=== PATIENT | female | born 1930 | race Caucasian/White ===

== ENCOUNTER 2018-11-30 15:20 | Inpatient (IN) | payer OTHER, MEDICAID ==
[~2018-11-30] VITALS: Ht 160 cm; Wt 61.7 kg
[~2018-11-30 15:20] MED LIST: AMLO10TA PO; ASPI-1677 PO; FURO-572 PO; LISI-420 PO; LORA0.5T6 PO; OMEP20TC12 PO; QUET25TA PO
[2018-11-30 15:26] VITALS: BP 125/55
--- NOTE | 2018-11-30 15:34 | NUR ---
PT RUCHI ALS TO ER BED 12
--- NOTE | 2018-11-30 15:35 | NUR ---
CHEST PAIN STARTING THIS AM, NON-PROVOKED. PT NOW DESCRIBING NON-RADIATING PAIN PRESSURE, PT AWAKE AND ALERT, NO SOB, NON DIAPHORETIC. GAVE ASPIRIN 324 IN FIELD. PATIENT ON 3 L NC UPON ARRIVAL. VSS. BED IS DOWN, LOCKED, BED RAIL X 1, ERMD TO SEE PT. PMH-HTN, ALZHEIMERS, CKD STAGE 3 AND HHD, HEART FAILURE, HYPERLIPIDEMIA
[2018-11-30] MEDS ORDERED: DOCU-299 PO (15:56)
[2018-11-30] MEDS ORDERED: ASCO500T45 PO (15:56)
[2018-11-30] MEDS ORDERED: [UNRECOGNIZED DRUG - OTHER] PO (15:56)
[2018-11-30] MEDS ORDERED: CRANBERRY PO (15:56)
--- NOTE | 2018-11-30 16:21 | NUR ---
PT TAKEN OFF NC, NOW ON RA
--- NOTE | 2018-11-30 16:48 | NUR ---
XRAY AT BEDSIDE
[2018-11-30 17:12] LABS: HEMATOCRIT 31.6 % (36-48); HEMOGLOBIN 10.6 g/dL (12.0-16.0); MEAN CORPUSCULAR HEMOGLOBIN 33 pg (27-31); MEAN CORPUSCULAR HGB CONC 34 g/dL (33-37); MEAN CORPUSCULAR VOLUME 99.5 fL (80-94); PLATELET COUNT (AUTO) 110 K/uL (140-450); RED BLOOD CELL COUNT(AUTO) 3.18 MIL/uL (4.20-5.40); RED CELL DISTRIBUTION WIDTH 16.3 % (11.6-13.7); WHITE BLOOD COUNT (AUTO) 3.7 K/uL (4.8-10.8)
--- NOTE | 2018-11-30 17:22 | NUR ---
pt placed on pacer pads, another ekg was done and shows
--- NOTE | 2018-11-30 17:24 | NUR ---
dr bonds at bedside
--- NOTE | 2018-11-30 17:24 | NUR ---
accelerated junctional rhythm
[2018-11-30] MEDS ORDERED: MORPHINE SULFATE 4 MG/ML SYR IVP ONE (17:25)
[2018-11-30] MEDS ORDERED: MORPHINE SULFATE 4 MG/ML SYR IVP STA (17:29)
--- NOTE | 2018-11-30 17:30 | NUR ---
SHANTHI EMT AT BEDSIDE FOR EKG
--- NOTE | 2018-11-30 17:35 | NUR ---
MORPHINE IVP ADMINSITERED ORDERED, PAIN 11/16
[2018-11-30 17:36] LABS: ALBUMIN 3.7 g/dL (3.4-5.0); ANION GAP 13.4 (8-16); ASPARTATE AMINOTRANSFERASE 21 U/L (15-37); CARBON DIOXIDE 26.4 mmol/L (21-32); CHLORIDE 106 mmol/L (98-107); CREATININE 1.9 mg/dL (0.6-1.3); GLUCOSE 145 mg/dL (74-106); POTASSIUM 4.8 mmol/L (3.5-5.1); SODIUM SERUM 141 mmol/L (136-145); TOTAL BILIRUBIN 0.3 mg/dL (0.0-1.0); UREA NITROGEN, BLOOD 51 mg/dL (7-18)
[2018-11-30 17:38] LABS: BASOPHILS % (MANUAL) 0 % (0-2); EOSINOPHILS % (MANUAL) 3 % (0-4); LYMPHOCYTES % (MANUAL) 39 % (20-46); MONOCYTES % (MANUAL) 14 % (5-12)
[2018-11-30] MEDS ORDERED: MORPHINE SULFATE 4 MG/ML SYR ONE (17:43)
--- NOTE | 2018-11-30 18:14 | NUR ---
# 14 FR Urinary catheter inserted utilizing sterile technique. Immediate return of 200 ml YELLOW urine noted. Urine sample collected and sent to lab. Pt tolerated procedure WELL.
[2018-11-30] MEDS ORDERED: VANCOMYCIN 1,000 MG VIAL ONE (18:29)
[2018-11-30] MEDS ORDERED: PIPERACILLIN/TAZOBACTAM 3.375 GM VIAL IV ONE (18:29)
[2018-11-30] MEDS ORDERED: MORPHINE SULFATE 2 MG/ML SYR IVP PRN (18:30)
[2018-11-30] MEDS ORDERED: ONDANSETRON 4 MG/2 ML VIAL IM/IVP PRN (18:30)
[2018-11-30] MEDS ORDERED: ACETAMINOPHEN 325 MG TAB PO PRN (18:30)
[2018-11-30] MEDS ORDERED: HYDROcodone/APAP 7.5/325 MG 1 TAB PO PRN (18:30)
--- NOTE | 2018-11-30 18:55 | NUR ---
lab at bedside for second blood culture
[2018-11-30 19:00] VITALS: BP 141/40
[2018-11-30] MEDS: PIPERACILLIN/TAZOBACTAM 3.375 GM in DEXTROSE 5% 50 ML IV ONE ×2 (19:00→19:30)
[2018-11-30] MEDS: NACL 0.9% 1,000 ML IV SCH (19:00)
[2018-11-30] MEDS: VANCOMYCIN 1,000 MG in DEXTROSE 5% 250 ML IV ONE ×2 (19:00→19:30)
--- NOTE | 2018-11-30 19:00 | NUR ---
Patient will be admitted to care of [facility]. Admited to tele. Will go to room 127b. Belongings list completed. Report to freddy zaragoza.
--- NOTE | 2018-11-30 19:00 | NUR ---
zosyn and bekaho mixed and pending start, freddy zaragoza made aware
--- NOTE | 2018-11-30 19:00 | NUR ---
RECEIVED PT FROM ED FROM JOAQUIM. PT AWAKE, W/ CONFUSION. PT USING A WALKER TO AMBULATE, W/ STANDBY ASSIST. POC REVIEWED DISCUSSED. PLACED ON LOW BED. CALL LIGHT W/IN REACH
--- NOTE | 2018-11-30 19:00 | NUR ---
RECEIVED W/ ONCOING ZOSYN AT A RATE OF 100 ML ON THE LEFT HAND G 20, INFUSING WELL . W/ VANCOMYCIN HANGING BUT NO INFUSION GOING ON. WILL CONTINUE INFUSION LATER
[2018-11-30 19:30] LABS: PROTHROMBIN TIME 11.9 secs (10.8-13.4)
--- NOTE | 2018-11-30 19:30 | NUR ---
VANCOMYCIN INFUSING AT 165 ML/ HR ON LEFT HAND G 20, INFUSING WELL
[2018-11-30 19:33] LABS: MAGNESIUM 2.2 mg/dL (1.8-2.4); PHOSPHORUS 4.2 mg/dL (2.5-4.9); THYROID STIMULATING HORMONE 1.34 uIU/mL (0.34-3.74)
[2018-11-30] MEDS ORDERED: CRAN450C PO (20:36)
[2018-11-30] MEDS ORDERED: LACT-2 (20:36)
[2018-11-30] MEDS ORDERED: FURO20TA8 PO (20:36)
[2018-11-30] MEDS ORDERED: LORazepam 0.5 MG TAB PO PRN (21:10)
--- NOTE | 2018-11-30 21:25 | NUR ---
WENT TO LUNG SCAN W/ 2 NUCLEAR MED STAFF VIA WHEELCHAIR
--- NOTE | 2018-11-30 21:52 | NUR ---
BACK FROM PULMONARY SCAN PLACED PT BACK IN BED, PLACED BACK VANCO IV INFUSING WELL ON LEFT HAND G 20,
[2018-11-30] MEDS ORDERED: KETOROLAC 15 MG/ML VIAL IVP PRN (22:05)
--- NOTE | 2018-11-30 23:15 | NUR ---
PLACED PT ON FALL RISK HAS HX OF FALLS
--- NOTE | 2018-11-30 23:45 | NUR ---
INFORMED BY [employer] PT HAS 45 HEART RATE AND FOR MONITORING. WENT TO PT'S BEDSIDE TOOK HER VITAL SIGNS. PT ASLEEP BRANDON EASILY AROUSABLE, NO S/ SX'S OF CHEST PAIN. EVEN RESPIRATION VS; 98, 107/53, 58, 95%, 0/10
[2018-12-01] VITALS: BP 107/53
[2018-12-01 00:14] LABS: APPEARANCE,URINE CLEAR (CLEAR); BILIRUBIN,URINE NEGATIVE (NEGATIVE); BLOOD, URINE NEGATIVE (NEGATIVE); COLOR,URINE YELLOW (YELLOW); LEUKOCYTE ESTERASE ,URINE NEGATIVE (NEGATIVE); NITRITE, URINE NEGATIVE (NEGATIVE); PH,URINE 5.5 (5.0-9.0); UGLUCOSE NEGATIVE (NEGATIVE)
--- NOTE | 2018-12-01 03:30 | NUR ---
INFORMED DR. KILGORE THAT PT HAS A HR = 53; DR AWARE,NO FURTHER ORDERS
[2018-12-01 04:00] VITALS: BP 117/77
[2018-12-01] MEDS: PANTOPRAZOLE 40 MG TABEC PO SCH (05:38)
--- NOTE | 2018-12-01 06:50 | NUR ---
PT, SLEEPING BUT EASILY AROUSABLE BY TACTILE AND VERBAL STIMULI. PT IN STABLE CONDITION AT THIS TIME.NO COMPLAINTS OF CHEST PAIN. WILL ENDORSE TO NEXT SHIFT
--- NOTE | 2018-12-01 07:15 | NUR ---
Received pt from night nurse. Pt in awake and in bed during bedside report. AAOx3. IV to L wrist, 20G, NS @ 100ml/hr, asymptomatic. Will continue to assess for changes in condition, no signs of acute distress at this time.
[2018-12-01 07:33] LABS: BASOPHILS % (AUTO) 0.1 % (0.0-2.0); EOSINOPHILS # (AUTO) 0.2 K/uL (0-0.4); EOSINOPHILS % (AUTO) 4.5 % (0.0-4.0); HEMATOCRIT 29.8 % (36-48); LYMPHOCYTES # (AUTO) 1.4 K/uL (2.5-16.5); LYMPHOCYTES % (AUTO) 31.4 % (20.5-51.1); MEAN CORPUSCULAR HEMOGLOBIN 34 pg (27-31); MEAN CORPUSCULAR HGB CONC 34 g/dL (33-37); MEAN CORPUSCULAR VOLUME 99.7 fL (80-94); MONOCYTES # (AUTO) 0.9 K/uL (0.8-1.0); MONOCYTES % (AUTO) 19.6 % (1.7-9.3); NEUTROPHILS % (AUTO) 44.4 % (42.2-75.2); PLATELET COUNT (AUTO) 99 K/uL (140-450); RED BLOOD CELL COUNT(AUTO) 2.99 MIL/uL (4.20-5.40); RED CELL DISTRIBUTION WIDTH 16.3 % (11.6-13.7); WHITE BLOOD COUNT (AUTO) 4.5 K/uL (4.8-10.8)
[2018-12-01 07:51] LABS: ANION GAP 13.9 (8-16); CARBON DIOXIDE 24.3 mmol/L (21-32); CHLORIDE 109 mmol/L (98-107); CREATININE 1.8 mg/dL (0.6-1.3); GLUCOSE 96 mg/dL (74-106); POTASSIUM 5.2 mmol/L (3.5-5.1); SODIUM SERUM 142 mmol/L (136-145); UREA NITROGEN, BLOOD 48 mg/dL (7-18)
[2018-12-01 07:55] LABS: MAGNESIUM 2.1 mg/dL (1.8-2.4); PHOSPHORUS 3.5 mg/dL (2.5-4.9)
[2018-12-01 07:58] VITALS: BP 123/57
[2018-12-01 08:19] LABS: CHOL/HDL RATIO 3.8 (1-4.5)
[2018-12-01] MEDS ORDERED: LISINOPRIL 20 MG TAB PO SCH (08:30)
--- NOTE | 2018-12-01 09:17 | NUR ---
DR. FUENTES NOTIFIED THAT PLATELETS 99, DOWN FRO 110 ON 11/30/18. DR FUENTES ADVISED THAT ORDERED SUB-Q HEPARIN OK TO ADMINISTER.
[2018-12-01] MEDS: DOCUSATE SODIUM 100 MG GELCAP PO SCH ×2 (09:20→20:59)
[2018-12-01] MEDS: QUEtiapine FUMARATE 25 MG TAB PO SCH ×2 (09:21→20:59)
[2018-12-01] MEDS: FUROSEMIDE 20 MG TAB PO SCH (09:21)
[2018-12-01] MEDS: amLODIPine 5 MG TAB PO SCH (09:21)
[2018-12-01] MEDS: ASCORBIC ACID 500 MG TAB PO SCH ×2 (09:21→20:59)
[2018-12-01] MEDS: ASPIRIN 81 MG TAB.CHEW PO SCH (09:22)
[2018-12-01] MEDS: NACL 0.9% 1,000 ML IV SCH (09:27)
[2018-12-01 12:00] VITALS: BP 109/39
--- NOTE | 2018-12-01 12:00 | NUR ---
PT IN BED. NO SIGNS OF ACUTE DISTRESS AT THIS TIME. WILL CONTINUE TO ASSESS FOR CHANGES IN CONDITION.
[2018-12-01] MEDS ORDERED: PATIROMER CALCIUM SORBITEX 8.4 GM PKT PO SCH (12:12)
--- NOTE | 2018-12-01 14:00 | NUR ---
PT IN BED, DENIES PAIN. LUNCH TRAY REMOVED FROM ROOM, PT STATED SHE WAS DONE EATING. PT SHOWS NO SIGNS OF ACUTE DISTRESS AT THIS TIME. WILL CONTINUE TO ASSESS FOR CHANGES IN CONDITION.
[2018-12-01 16:00] VITALS: BP 122/44
--- NOTE | 2018-12-01 16:00 | NUR ---
PT IN BED SLEEPING. PT WOKE BY VOICE. 1600 VITALS OBTAINED AND TRENDING WITH PREVIOUS. NO SIGNS OF ACUTE DISTRESS AT THIS TIME. WILL CONTINUE TO ASSESS PT FOR CHANGES IN CONDITION.
--- NOTE | 2018-12-01 19:00 | NUR ---
PT ENDORSED TO HOSTESS PARTY SALES REPRESENTATIVE. PT IN BED, NO SIGNS OF ACUTE DISTRESS AT THIS TIME. PT ALERT AND ORIENTED DURING BEDSIDE SBAR. IV SITE ASYMPTOMATIC INFUSING NS AT 60ML/HR. PT DISPLAYS NO SIGNS OF ACUTE DISTRESS AT THIS TIME.
--- NOTE | 2018-12-01 19:01 | NUR ---
RECEIVED BEDSIDE REPORT PT FROM PM SHIFT NURSE. PT AWAKE, ALERT O X 3, W/ FORGETFULNESS. W/ IV ON THE L WRIST 20 G NS AT 100 ML/HR, ASYMPTOMATIC. PLACED PT IN LOW BED. FALL RISK PRECAUTION IN PLACE.
[2018-12-01 19:29] LABS: ANION GAP 15.6 (8-16); CARBON DIOXIDE 22.2 mmol/L (21-32); CHLORIDE 107 mmol/L (98-107); CREATININE 1.8 mg/dL (0.6-1.3); GLUCOSE 104 mg/dL (74-106); POTASSIUM 4.8 mmol/L (3.5-5.1); SODIUM SERUM 140 mmol/L (136-145); UREA NITROGEN, BLOOD 45 mg/dL (7-18)
--- NOTE | 2018-12-01 19:45 | NUR ---
BRUCE VITALS OF PT, REPORTED TO DR. KILGORE VS BP LOW AT 90/31 (map 59); HR 55, BRADYCARDIC, RR=18, 97.2 O2 SAT 94%. TO RETAKE BP AFTER 30 MINS.
[2018-12-01 20:00] VITALS: BP 90/31
--- NOTE | 2018-12-01 20:15 | NUR ---
RETOOK BLOOD PRESSURE PT BP IS 112/ 52; HR 58.NO NEW ORDERS
--- NOTE | 2018-12-01 20:40 | NUR ---
99 PLT LOW, CONTINUE GIVING THE HEPARIN SQ PER DR'S ORDER. DR. KILGORE
[2018-12-02] VITALS: BP 114/34
--- NOTE | 2018-12-02 00:15 | NUR ---
VS CHECKED AND CHARTED. ASSISTED PT TO RESTROOM. PT TOLERATED ACTIVITY WELL. WILL CONTINUE TO MONITOR PT.
--- NOTE | 2018-12-02 00:28 | NUR ---
IV LINE DISLODGED, TRIED TO POKE PT, ON THE LEFT ARM, PT SHIED AWAY HAND. SHE SAID "IT HURTS, GRIMACING IN PAIN. INFORMED DR. KILGORE AND TO LEAVE IT FOR THE NIGHT AND TRY AGAIN TMRW(IF DISCHARGE WILL NOT PUSH THROUGH)
[2018-12-02] MEDS: NACL 0.9% 1,000 ML IV SCH ×2 (01:47→18:27)
--- NOTE | 2018-12-02 02:19 | NUR ---
PT HAS NO IV LINE. DR. KILGORE AWARE
[2018-12-02 04:00] VITALS: BP 135/49
--- NOTE | 2018-12-02 04:00 | NUR ---
PT WENT TO THE BATHROOM W/ 1 PERSON ASSIST. PT VOIDED 2X
[2018-12-02] MEDS: PANTOPRAZOLE 40 MG TABEC PO SCH (05:37)
[2018-12-02 06:33] LABS: MAGNESIUM 1.8 mg/dL (1.8-2.4); PHOSPHORUS 3.4 mg/dL (2.5-4.9)
[2018-12-02 06:34] LABS: ANION GAP 13.7 (8-16); CARBON DIOXIDE 22.9 mmol/L (21-32); CHLORIDE 108 mmol/L (98-107); CREATININE 1.6 mg/dL (0.6-1.3); GLUCOSE 100 mg/dL (74-106); POTASSIUM 4.6 mmol/L (3.5-5.1); SODIUM SERUM 140 mmol/L (136-145); UREA NITROGEN, BLOOD 42 mg/dL (7-18)
--- NOTE | 2018-12-02 06:38 | NUR ---
PT, SLEEPING BUT EASILY AROUSABLE BY TACTILE AND VERBAL STIMULI. PT IN STABLE CONDITION AT THIS TIME.NO COMPLAINTS OF CHEST PAIN. WILL ENDORSE TO NEXT SHIFT
--- NOTE | 2018-12-02 07:20 | NUR ---
RECEIVED PT FROM FURNACE ERECTOR NURSE, PT IS AWAKE AND LYING ON THE BED, SIDE RAILS ARE UP AND CALL LIGHT WITHIN REACH, SAFETY AND FALL PRECAUTION INITIATED, BED ALARM ACTIVATED, PT HAS NO IV LINE, SAID NOT TO REINSERT ANOTHER IV LINE PER ENDORSEMENT, PT DENIES PAIN AND NO SIGN OF DISTRESS NOTED AND WILL MONITOR PT.
[2018-12-02 08:05] VITALS: BP 134/40
--- NOTE | 2018-12-02 08:11 | NUR ---
PATIENT HAS BEEN SCREENED AND CATEGORIZED MODERATE NUTRITION RISK. PATIENT WILL BE SEEN WITHIN 3-5 DAYS OF ADMISSION. 12/03/18FR[address]
[2018-12-02] MEDS: DOCUSATE SODIUM 100 MG GELCAP PO SCH ×2 (08:45→21:15)
[2018-12-02] MEDS: ASCORBIC ACID 500 MG TAB PO SCH ×2 (08:46→21:15)
--- NOTE | 2018-12-02 08:46 | NUR ---
PT IS AWAKE AND ORAL MEDICATIONS WERE GIVEN AND PT TOLERATED IT. NO SIGN OF DISTRESS NOTED AND WILL MONITOR PT.
[2018-12-02] MEDS: amLODIPine 5 MG TAB PO SCH (08:47)
[2018-12-02] MEDS: FUROSEMIDE 20 MG TAB PO SCH (08:48)
[2018-12-02] MEDS: QUEtiapine FUMARATE 25 MG TAB PO SCH ×2 (08:48→21:15)
[2018-12-02] MEDS: ASPIRIN 81 MG TAB.CHEW PO SCH (08:48)
[2018-12-02 09:04] LABS: BASOPHILS % (AUTO) 0.7 % (0.0-2.0); EOSINOPHILS # (AUTO) 0.2 K/uL (0-0.4); HEMATOCRIT 28.7 % (36-48); HEMOGLOBIN 9.6 g/dL (12.0-16.0); LYMPHOCYTES # (AUTO) 1.5 K/uL (2.5-16.5); LYMPHOCYTES % (AUTO) 44.8 % (20.5-51.1); MEAN CORPUSCULAR HEMOGLOBIN 33 pg (27-31); MEAN CORPUSCULAR HGB CONC 33 g/dL (33-37); MEAN CORPUSCULAR VOLUME 99.1 fL (80-94); MONOCYTES # (AUTO) 0.6 K/uL (0.8-1.0); MONOCYTES % (AUTO) 16.1 % (1.7-9.3); NEUTROPHILS # (AUTO) 1.1 K/uL (1.8-7.7); NEUTROPHILS % (AUTO) 32.4 % (42.2-75.2); PLATELET COUNT (AUTO) 95 K/uL (140-450); RED CELL DISTRIBUTION WIDTH 16.4 % (11.6-13.7); WHITE BLOOD COUNT (AUTO) 3.5 K/uL (4.8-10.8)
--- NOTE | 2018-12-02 10:18 | NUR ---
PTS HEPARIN WAS NOT GIVEN DUE TO LOW PLT COUNT
--- NOTE | 2018-12-02 10:44 | NUR ---
REFERRALS FAXED TO [facility].
--- NOTE | 2018-12-02 10:45 | NUR ---
PHYSICAL THERAPIST DOING EVALUATION WITH THE PT, PT WAS SEEN AMBULATING IN THE HALLWAY ASSISTED WITH PT, GAIT STEADY WITH ASSIST
[2018-12-02 12:00] VITALS: BP 138/51
--- NOTE | 2018-12-02 13:27 | NUR ---
PER ARIELLE OF [facility] [place], PATIENT WILL GO TO THE SAME ROOM 45A UNDER DR. SMALLS FOR TOMORROW.
--- NOTE | 2018-12-02 15:00 | NUR ---
A NEW IV LINE WAS STARTED TO PT ON THE RT FA G. 22.
[2018-12-02 16:00] VITALS: BP 134/54
--- NOTE | 2018-12-02 19:22 | NUR ---
ENDORSED PT TO NIGHT AHIFT NURSEBRE WITH CONTINUED CARE
--- NOTE | 2018-12-02 19:25 | NUR ---
RECEIVED BEDSIDE REPORT FROM AM SHIFT SHAKIRA KHAN, FOR PT'S CONTINUITY OF CARE. PT IS LYING DOWN, AWAKE, WATCHING TV, IS ON ROOM AIR, HAS A RIGHT FA 22G INFUSING WITH NORMAL SALINE AT 60ML/HR, PT DENIES ANY PAIN OR DISCOMFORT AT THIS TIME, FALL PRECAUTION AND PREVENTION IN PLACE. EXPLAINED TO PT HEAD OF RESEARCH & INSIGHTS ROUTINE, AND PT VERBALIZED UNDERSTANDING. BED IS ON LOW POSITION, SIDE RAILS ARE UP, AND CALL LIGHT IS WITHIN REACH. WILL MONITOR PT THROUGHOUT SHIFT.
--- NOTE | 2018-12-02 20:40 | NUR ---
ADMINISTERED SCHEDULED PO MEDICATIONS ORDERED. PT TOLERATED THEM WELL. HEPARIN HELD PER MD, PLT 95, APTT 24.9. WILL CONTINUE TO MONITOR PT.
[2018-12-03] VITALS: BP 148/52
--- NOTE | 2018-12-03 02:30 | NUR ---
MADE ROUNDS. PT LYING DOWN ASLEEP, WITH NO SIGNS OF DISTRESS. WILL CONTINUE TO MONITOR PT.
--- NOTE | 2018-12-03 04:45 | NUR ---
MADE ROUNDS. PATIENT LYING DOWN ASLEEP WITH NO SIGNS OF DISTRESS. WILL CONTINUE TO MONITOR PT.
[2018-12-03] MEDS: PANTOPRAZOLE 40 MG TABEC PO SCH (05:57)
--- NOTE | 2018-12-03 05:58 | NUR ---
ASSISTED PT TO RESTROOM, PT TOLERATED ACTIVITY WELL. ADMINISTERED SCHEDULED PO MEDICATION ORDERED. PT TOLERATED IT WELL. PT NOW LYING DOWN, AWAKE, WITH NO COMPLAINS OF PAIN OR DISCOMFORT. WILL ENDORSE TO AM SHIFT RN FOR PT'S CONTINUITY OF CARE.
[2018-12-03 06:28] LABS: ANION GAP 11.4 (8-16); CARBON DIOXIDE 26.1 mmol/L (21-32); CHLORIDE 108 mmol/L (98-107); CREATININE 1.3 mg/dL (0.6-1.3); GLUCOSE 101 mg/dL (74-106); POTASSIUM 4.5 mmol/L (3.5-5.1); SODIUM SERUM 141 mmol/L (136-145); UREA NITROGEN, BLOOD 35 mg/dL (7-18)
[2018-12-03 06:36] LABS: MAGNESIUM 1.6 mg/dL (1.8-2.4); PHOSPHORUS 3.4 mg/dL (2.5-4.9)
--- NOTE | 2018-12-03 07:05 | NUR ---
RECEIVED PATIENT FROM BEARINGIZER NURSEBRE, AWAKE, LAYING ON THE BED RAILS UP AND PADDED, BED ALARM ACTIVATED, BED LIGHT WITHIN REACH, SAFETY PRECAUTIONS INITIATED, IV LINE ON R. FA 22G NS AT 60ML/HR. PATIENT VERBALIZED PAIN ON THE LEFT EAR, CHECKED AND ASSESSED, NO INFLAMMATION OR REDNESS NOTED, WILL INFORM MD, NO SIGNS OF DISTRESS NOTED, WILL CONTINUE TO MONITOR.
[2018-12-03 07:27] LABS: BASOPHILS % (AUTO) 0.4 % (0.0-2.0); EOSINOPHILS # (AUTO) 0.2 K/uL (0-0.4); EOSINOPHILS % (AUTO) 5.8 % (0.0-4.0); HEMATOCRIT 30.6 % (36-48); HEMOGLOBIN 10.5 g/dL (12.0-16.0); LYMPHOCYTES # (AUTO) 1.1 K/uL (2.5-16.5); LYMPHOCYTES % (AUTO) 35.6 % (20.5-51.1); MEAN CORPUSCULAR HEMOGLOBIN 34 pg (27-31); MEAN CORPUSCULAR HGB CONC 34 g/dL (33-37); MEAN CORPUSCULAR VOLUME 99.2 fL (80-94); MONOCYTES # (AUTO) 0.6 K/uL (0.8-1.0); MONOCYTES % (AUTO) 19.3 % (1.7-9.3); NEUTROPHILS # (AUTO) 1.2 K/uL (1.8-7.7); NEUTROPHILS % (AUTO) 38.9 % (42.2-75.2); PLATELET COUNT (AUTO) 102 K/uL (140-450); RED BLOOD CELL COUNT(AUTO) 3.09 MIL/uL (4.20-5.40); WHITE BLOOD COUNT (AUTO) 3.1 K/uL (4.8-10.8)
[2018-12-03 08:00] VITALS: BP 136/60
[2018-12-03] MEDS: amLODIPine 5 MG TAB PO SCH (08:18)
[2018-12-03] MEDS: QUEtiapine FUMARATE 25 MG TAB PO SCH ×2 (08:18→21:24)
[2018-12-03] MEDS: ASCORBIC ACID 500 MG TAB PO SCH ×2 (08:19→21:24)
[2018-12-03] MEDS: FUROSEMIDE 20 MG TAB PO SCH (08:19)
[2018-12-03] MEDS: DOCUSATE SODIUM 100 MG GELCAP PO SCH ×2 (08:20→21:24)
[2018-12-03] MEDS: ASPIRIN 81 MG TAB.CHEW PO SCH (08:20)
[2018-12-03] MEDS: NACL 0.9% 1,000 ML IV SCH (08:23)
--- NOTE | 2018-12-03 08:23 | NUR ---
PT IS AWAKE AND EATING HER BREAKFAST, ORAL AND SUBQ MEDICATIONS WERE GIVEN, SAID TO GIVEN HEPARIN FOR THE PLATELET OF 102. PT TOLERATED THE MEDICINES AND WILL MONITOR PT.
[2018-12-03] MEDS ORDERED: MAGNESIUM OXIDE 400 MG TAB PO SCH (09:09)
--- NOTE | 2018-12-03 09:54 | NUR ---
PT WAS GIVEN MAGNESIUM OXIDE ORAL FOR THE MG LEVEL OF 1.6, WILL MONITOR PT.
[2018-12-03] MEDS ORDERED: CARBAMIDE PEROXIDE 6.5% OT 15 ML BTL OT SCH ×2 (10:42→21:00)
--- NOTE | 2018-12-03 10:50 | NUR ---
ARIELLE OF [facility] AT [phone] MADE AWARE OF DC PLAN FOR TOMORROW.
--- NOTE | 2018-12-03 14:00 | NUR ---
PT IS AWAKE AND WATCHING TV, DENIES PAIN AND NO SIGN OF DISTRESS NOTED. WILL MONITOR TP.
[2018-12-03 16:00] VITALS: BP 109/37
--- NOTE | 2018-12-03 16:00 | NUR ---
PT IS AWAKE AND LYING ON THE BED VITAL SIGNS TAKEN AND IS STABLE, DENIES PAIN AND NO SIGN OF DISTRESS NOTED. WILL MONITOR PT.
--- NOTE | 2018-12-03 19:05 | NUR ---
ENDORSED PATIENT TO COOK HELPER DESSERT NURSEANH FOR CONTINUING OF CARE
--- NOTE | 2018-12-03 19:10 | NUR ---
RECEIVED PT IN STABLE CONDITION FROM AM NURSE FOR CONTINUITY OF CARE. MED SURG PT. WITH NO C/O ANY DISCOMFORT NOR PAIN NOTED. HAS IVF INFUSING WELL ON THE RT FAg#22. CLEAR AND PATENT. PLAN OF CARE DISCUSSED AND VERBALIZED UNDERSTANDING. BED ON LOW POSITION. ALARM ON. FREQ CHECK NEEDED. CALL LIGHT PLACED WITHIN EASY REACH. ON CONTACT ISOLATION FRO + MRSA NARES. WILL ASK FOR ORDERS TO MD. WILL CONTINUE TO MONITOR.
[2018-12-03 20:00] VITALS: BP 127/49
[2018-12-03] MEDS: CHLORHEXADINE GLUC 2% CLOTH TP SCH ×2 (20:25→23:16)
[2018-12-03] MEDS: CARBAMIDE PEROXIDE 6.5% OT 15 ML BTL OT SCH (21:28)
--- NOTE | 2018-12-03 21:28 | NUR ---
ALL MEDS DUE FOR THE NIGHT TAKEN BY PT.
--- NOTE | 2018-12-03 21:30 | NUR ---
CALLED PHARMACY TO FOLLOW UP REGARDING PENDING BACTROBAN ORDER. NEED CHANGE IN APPLICATION WHAT PHARMACY SAID. DR. BALLARD MADE AWARE.
--- NOTE | 2018-12-03 22:00 | NUR ---
BACTROBAN TREATMENT NOT STARTED .NEED TO GIVE WITH CHLORHEXIDINE BATH TOGETHER.
--- NOTE | 2018-12-03 23:00 | NUR ---
MADE ROUNDS. ASLEEP. NO S/S OF ANY DISCOMFORT NOTED.
[2018-12-04] MEDS: NACL 0.9% 1,000 ML IV SCH ×2 (00:15→20:27)
--- NOTE | 2018-12-04 00:15 | NUR ---
ASSISTED TO BATHROOM. AMBULATED WELL WITH STANDBY ASSISTANCE. VOIDED.
[2018-12-04 00:45] VITALS: BP 144/59
--- NOTE | 2018-12-04 00:45 | NUR ---
PT AFEBRILE. NO C/O ANY PAIN NOR DISCOMFORT NOTED. WILL CONTINUE TO MONITOR.
--- NOTE | 2018-12-04 02:00 | NUR ---
MADE ROUNDS. PT IS ASLEEP. NO S/S OF ANY DISCOMFORT NOTED.
--- NOTE | 2018-12-04 04:30 | NUR ---
MADE ROUNDS. PT IS ASLEEP. NO S/S OF ANY DISCOMFORT NOR DISTRESS NOTED.
[2018-12-04] MEDS: PANTOPRAZOLE 40 MG TABEC PO SCH (06:27)
[2018-12-04 06:44] LABS: BASOPHILS % (AUTO) 0.3 % (0.0-2.0); EOSINOPHILS # (AUTO) 0.2 K/uL (0-0.4); EOSINOPHILS % (AUTO) 5.6 % (0.0-4.0); HEMATOCRIT 27.8 % (36-48); HEMOGLOBIN 9.3 g/dL (12.0-16.0); LYMPHOCYTES # (AUTO) 1.3 K/uL (2.5-16.5); LYMPHOCYTES % (AUTO) 38.3 % (20.5-51.1); MEAN CORPUSCULAR HEMOGLOBIN 33 pg (27-31); MEAN CORPUSCULAR HGB CONC 33 g/dL (33-37); MONOCYTES # (AUTO) 0.6 K/uL (0.8-1.0); MONOCYTES % (AUTO) 17.3 % (1.7-9.3); NEUTROPHILS # (AUTO) 1.3 K/uL (1.8-7.7); NEUTROPHILS % (AUTO) 38.5 % (42.2-75.2); PLATELET COUNT (AUTO) 102 K/uL (140-450); RED BLOOD CELL COUNT(AUTO) 2.81 MIL/uL (4.20-5.40); RED CELL DISTRIBUTION WIDTH 15.9 % (11.6-13.7); WHITE BLOOD COUNT (AUTO) 3.4 K/uL (4.8-10.8)
[2018-12-04 06:51] LABS: ANION GAP 12.7 (8-16); CARBON DIOXIDE 23.6 mmol/L (21-32); CHLORIDE 109 mmol/L (98-107); CREATININE 1.2 mg/dL (0.6-1.3); GLUCOSE 97 mg/dL (74-106); POTASSIUM 4.3 mmol/L (3.5-5.1); SODIUM SERUM 141 mmol/L (136-145); UREA NITROGEN, BLOOD 35 mg/dL (7-18)
[2018-12-04 06:55] LABS: MAGNESIUM 1.7 mg/dL (1.8-2.4); PHOSPHORUS 3.3 mg/dL (2.5-4.9)
--- NOTE | 2018-12-04 07:20 | NUR ---
ENDORSED PT IN STABLE CONDITION TO AM NURSE FOR CONTINUITY OF CARE.
--- NOTE | 2018-12-04 07:22 | NUR ---
RECEIVED REPORT FROM NIGHT RN. PT RESTING IN BED. AAOX4. NO S/S OF ACUTE DISTRESS. PT DENIES PAIN. IV SITE PATENT AND INTACT. CALL LIGHT WITHIN REACH. SAFETY MEASURES ENSURED. WILL CONTINUE TO MONITOR.
[2018-12-04 08:00] VITALS: BP 146/59
[2018-12-04] MEDS: ASCORBIC ACID 500 MG TAB PO SCH ×2 (09:52→20:53)
[2018-12-04] MEDS: ASPIRIN 81 MG TAB.CHEW PO SCH (09:53)
[2018-12-04] MEDS: DOCUSATE SODIUM 100 MG GELCAP PO SCH ×2 (09:53→20:53)
[2018-12-04] MEDS: QUEtiapine FUMARATE 25 MG TAB PO SCH ×2 (09:54→20:53)
[2018-12-04] MEDS: FUROSEMIDE 20 MG TAB PO SCH (09:54)
[2018-12-04] MEDS: amLODIPine 5 MG TAB PO SCH (09:56)
[2018-12-04] MEDS: CARBAMIDE PEROXIDE 6.5% OT 15 ML BTL OT SCH ×2 (09:57→21:52)
--- NOTE | 2018-12-04 10:07 | NUR ---
CONTACTED [facility] [place] AT [phone], ABLE TO SPEAK TO ROSA MADE HER AWARE THAT THE DC PLAN IS FOR TOMORROW.
[2018-12-04] MEDS ORDERED: MAGNESIUM OXIDE 400 MG TAB PO SCH (12:30)
--- NOTE | 2018-12-04 12:31 | NUR ---
PATIENT RESTING IN BED. NO S/S OF ACUTE DISTRESS. PT DENIES PAIN. CALL LIGHT WITHIN REACH. SAFETY MEASURES ENSURED.
--- NOTE | 2018-12-04 14:41 | NUR ---
12/04/18 RD INITIAL ASSESSMENT COMPLETED PLEASE REFER TO NUTRITION ASSESSMENT UNDER CARE ACTIVITY FOR ESTIMATED NUTRITIONAL NEEDS. 1. CONTINUE CARDIAC MECHANICAL SOFT DIET TOLERATED 2. RECOMMEND ENSURE BID 3. RD TO FOLLOW-UP 3-5 DAYS, MODERATE RISK FRANK WOODALL RD
[2018-12-04 16:00] VITALS: BP 111/35
--- NOTE | 2018-12-04 16:32 | NUR ---
PT RESTING IN BED. NO S/S OF ACUTE DISTRESS.PT DENIES PAIN. IV SITE PATENT AND INTACT. CALL LIGHT WITHIN REACH. SAFETY MEASURES ENSURED.
--- NOTE | 2018-12-04 19:20 | NUR ---
RECEIVED FROM AM RN IN BED WATCHING TV AWAKE AND ALERT. NO COMPLAINTS DONE. CALL LIGHT WITH IN REACH. ABLE TO HOLD A CONVERSATION WITH ME WELL. IVF SITE TO RFA #22 INTACT AND INFUSING WITH NS AT 60 ML/H. DX. OF SEPSIS AND CHEST PAIN IN ER. CARE PLANS FOR THE NIGHT DISCUSSED WITH HER. ENCOURAGED TO USE CALL LIGHT FOR HELP OR IF IN PAIN. "OK" BED ALARM ON.
[2018-12-04] MEDS: CHLORHEXADINE GLUC 2% CLOTH TP SCH (20:53)
--- NOTE | 2018-12-04 21:53 | NUR ---
ADMINISTERED 2 DROPS OF DEBROX TO EACH EAR. PT. WAKES UP WHEN TOUCHED. NO RESTLESSNESS. NO COMLAINTS DONE OF PAIN. PT. PERSONAL HYGIENE RENDERED AND KEPT COMFORTABLE RT HAD URINATED IN BED. WITH INCONTINENCE. ABLE TO VERBALIZE SIMPLE NEEDS IN [place].
[2018-12-05] VITALS: BP 132/43
--- NOTE | 2018-12-05 01:21 | NUR ---
PT. SLEEPING AT THIS TIME. CALL LIGHT WITH IN REACH. BED ALARM ON. WAKES UP EASILY WHEN TOUCHED OR TALKED TO. NEEDS WILL BE ANTICIPATED AND WILL BE MET.
--- NOTE | 2018-12-05 03:20 | NUR ---
SLEEPING. NO RESTLESSNESS.
[2018-12-05] MEDS: PANTOPRAZOLE 40 MG TABEC PO SCH (05:45)
--- NOTE | 2018-12-05 06:42 | NUR ---
SLEPT WELL THIS SHIFT. NO COMPLAINTS DONE. ASSISTED TO RESTROOM TO URINATE BY RISK MANAGEMENT DIRECTOR. AMBULATES WITH ASSIST.
[2018-12-05 06:58] LABS: BASOPHILS % (AUTO) 0.3 % (0.0-2.0); EOSINOPHILS # (AUTO) 0.2 K/uL (0-0.4); HEMATOCRIT 27.2 % (36-48); HEMOGLOBIN 9.1 g/dL (12.0-16.0); LYMPHOCYTES # (AUTO) 1.3 K/uL (2.5-16.5); LYMPHOCYTES % (AUTO) 35.3 % (20.5-51.1); MEAN CORPUSCULAR HEMOGLOBIN 33 pg (27-31); MEAN CORPUSCULAR HGB CONC 34 g/dL (33-37); MEAN CORPUSCULAR VOLUME 98.8 fL (80-94); MONOCYTES # (AUTO) 0.8 K/uL (0.8-1.0); MONOCYTES % (AUTO) 20.8 % (1.7-9.3); NEUTROPHILS # (AUTO) 1.4 K/uL (1.8-7.7); NEUTROPHILS % (AUTO) 38.6 % (42.2-75.2); PLATELET COUNT (AUTO) 98 K/uL (140-450); RED BLOOD CELL COUNT(AUTO) 2.75 MIL/uL (4.20-5.40); RED CELL DISTRIBUTION WIDTH 15.9 % (11.6-13.7); WHITE BLOOD COUNT (AUTO) 3.6 K/uL (4.8-10.8)
[2018-12-05 07:04] LABS: ANION GAP 14.2 (8-16); CARBON DIOXIDE 24.2 mmol/L (21-32); CHLORIDE 108 mmol/L (98-107); CREATININE 1.2 mg/dL (0.6-1.3); GLUCOSE 99 mg/dL (74-106); POTASSIUM 4.4 mmol/L (3.5-5.1); SODIUM SERUM 142 mmol/L (136-145); UREA NITROGEN, BLOOD 35 mg/dL (7-18)
--- NOTE | 2018-12-05 07:18 | NUR ---
RECEIVED ENDORSEMENT FROM SUPPLY CHAIN PROJECT MANAGER NURSE. PATIENT IS ALERT AND AWAKE, NIUEAN SPEAKING. RESPIRATIONS ARE EVEN AND UNLABORED ON ROOM AIR. PATIENT DENIES ANY PAIN AT THIS TIME. RIGHT FA 22G IV INTACT, PATENT, AND INFUSING IVF. PLAN OF CARE WAS REVIEWED WITH PATIENT, PATIENT VERBALIZED UNDERSTANDING. SAFETY MEASURES IN PLACE, CALL LIGHT WITHIN REACH.
[2018-12-05 07:34] LABS: MAGNESIUM 1.7 mg/dL (1.8-2.4); PHOSPHORUS 3.2 mg/dL (2.5-4.9)
[2018-12-05 08:00] VITALS: BP 128/53
--- NOTE | 2018-12-05 08:53 | NUR ---
CONTACTED [facility] [place] AT [phone], ABLE TO SPEAK TO ROSA. IF PATIENT GOING TO BE DC TODAY, PATIENT WILL GO ROOM 45A UNDER DR. CARLOS SMALLS.
[2018-12-05] MEDS ORDERED: MUPIROCIN CA NASAL 2% 1GM TUBE NS SCH (09:00)
[2018-12-05] MEDS: CARBAMIDE PEROXIDE 6.5% OT 15 ML BTL OT SCH (09:16)
[2018-12-05] MEDS: DOCUSATE SODIUM 100 MG GELCAP PO SCH (09:17)
[2018-12-05] MEDS: QUEtiapine FUMARATE 25 MG TAB PO SCH (09:17)
[2018-12-05] MEDS: ASPIRIN 81 MG TAB.CHEW PO SCH (09:17)
[2018-12-05] MEDS: ASCORBIC ACID 500 MG TAB PO SCH (09:17)
--- NOTE | 2018-12-05 09:17 | NUR ---
ADMINISTERED SCHEDULED MEDICATIONS. PATIENT TOLERATED WELL. PATIENT DENIES ANY PAIN. NO OTHER NEEDS AT THIS TIME, WILL CONTINUE TO MONITOR.
[2018-12-05] MEDS: FUROSEMIDE 20 MG TAB PO SCH (09:18)
[2018-12-05] MEDS: amLODIPine 5 MG TAB PO SCH (09:18)
[2018-12-05] MEDS ORDERED: [UNRECOGNIZED DRUG - CODE] OT (09:53)
[2018-12-05] MEDS ORDERED: MUPI2CRE22 NS (09:53)
[2018-12-05] MEDS ORDERED: CHLO118S2 TP (09:53)
[2018-12-05] MEDS ORDERED: MAG SULF 2000 MG/WATER PREMIX 50 ML IV SCH (11:00)
[2018-12-05] MEDS ORDERED: MAGNESIUM OXIDE 400 MG TAB PO SCH (11:00)
--- NOTE | 2018-12-05 11:34 | NUR ---
CONTACTED [facility] AT [phone] TO GET TRANSPORT AUTH, ABLE TO SPEAK TO FERNANDO. SHE SAID SHE WILL TRANSFER ME TO THE [facility] DEPT DUE TO ISOLATION, NO ANSWER. SHE ALSO STATED THAT SHE WILL HAVE SOMEONE TO CALL ME BACK, I PROVIDED HER WITH MY CONTACT INFO. SHE ALSO PROVIDED ME OF THE CONTACT INFO FOR TRANSPORT DEPT [phone]. RECEIVED A CALL FROM ROCCO FROM [facility] [place], CONFIRMED WITH HER THAT THE PATIENT WILL BE DISCHARGING TODAY AND STILL IN THE PROCESS OF GETTING TRANSPORT AUTH. WILL CONFIRM WITH HER SOON I GET THE TRANSPORT AUTH.
--- NOTE | 2018-12-05 11:46 | NUR ---
PATIENT RESTING IN BED. NO COMPLAINS OF PAIN AT THIS TIME. WILL CONTINUE TO MONITOR.
[2018-12-05] MEDS: NACL 0.9% 1,000 ML IV SCH (13:07)
--- NOTE | 2018-12-05 13:45 | NUR ---
PATIENT RESTING IN BED. AMBULATED TO RESTROOM WITH STEADY GAIT. NO COMPLAINS OF PAIN AT THIS TIME, WILL CONTINUE TO MONITOR.
--- NOTE | 2018-12-05 13:53 | NUR ---
[place] ROCCO [place] [facility] [place] FOR [place]SP[place]ATION. CONTACTED [facility] CONTACTED AT [phone], BLADDER BLOWER WILL BE AT 6PM. PRIMARY RN MADE AWARE.
--- NOTE | 2018-12-05 15:56 | NUR ---
PATIENT RESTING IN BED. DENIES ANY PAIN. NO OTHER NEEDS AT THIS TIME.
[2018-12-05 16:00] VITALS: BP 118/52
--- NOTE | 2018-12-05 16:27 | NUR ---
GAVE REPORT TO SHAKIRA MASON AT [facility] [place]. ALL QUESTIONS AND CONCERNS ANSWERED. PATIENT PENDING TRANSPORTATION. PATIENT IS STABLE AT THIS TIME.
--- NOTE | 2018-12-05 17:27 | NUR ---
DISCHARGE INSTRUCTIONS WERE GIVEN. ALL QUESTIONS AND CONCERNS ANSWERED. IV WAS REMOVED, CANNULA INTACT WITH MINIMAL BLEEDING. PAT[place] TO [place] [facility] [place] P[place]SP[place].
--- NOTE | 2018-12-05 18:33 | NUR ---
PATIENT TAKEN OFF UNIT VIA GURNEY ACCOMPANIED BY TRANSPORTERS. ALL BELONGINGS LEFT WITH PATIENT. PATIENT IS STABLE AT THIS TIME.
== END 2018-12-05 18:40 | DRG 205 ==
LOC: MED 15:20 → MMU 18:30
PROVIDERS: ADMIT General Practice; ATTEND General Practice
DX: M94.0 Chondrocostal junction syndrome [Tietze] (principal); N17.0 Acute kidney failure with tubular necrosis; I50.43 Acute on chronic combined systolic (congestive) and diastolic (congestive) heart failure; G93.41 Metabolic encephalopathy; G30.9 Alzheimer's disease, unspecified; F02.80 Dementia in other diseases classified elsewhere, unspecified severity, without behavioral disturbance, psychotic disturbance, mood disturbance, and anxiety; E11.9 Type 2 diabetes mellitus without complications; I11.0 Hypertensive heart disease with heart failure; I25.10 Atherosclerotic heart disease of native coronary artery without angina pectoris; K59.00 Constipation, unspecified; D63.8 Anemia in other chronic diseases classified elsewhere; D72.819 Decreased white blood cell count, unspecified; E87.5 Hyperkalemia; E87.8 Other disorders of electrolyte and fluid balance, not elsewhere classified; H61.23 Impacted cerumen, bilateral; E83.42 Hypomagnesemia; Z88.2 Allergy status to sulfonamides; Z95.1 Presence of aortocoronary bypass graft; Z82.49 Family history of ischemic heart disease and other diseases of the circulatory system; Z22.322 Carrier or suspected carrier of Methicillin resistant Staphylococcus aureus
CPT/HCPCS: 36415; 71045; 78582; 80048; 80053; 81003; 82150; 83036; 83605; 83690; 83735; 83880; 84100; 84443; 84484; 85025; 85379; 85610; 85730; 87040; 87081; 93005; 96374; 97110; 97116; 97161-GP; 97530; 99291; C1758; J1644; J2270; J2543; J3370; J3475; J7030; Q0092